=== PATIENT | female | born 1970 | race Caucasian/White ===

== ENCOUNTER 2018-04-11 22:54 | Emergency (ER) | payer BC ==
[~2018-04-11] VITALS: Ht 157.5 cm; Wt 49.9 kg
--- NOTE | 2018-04-11 23:10 | NUR ---
SEEN AND EXAMINED BY DANIELA
--- NOTE | 2018-04-11 23:14 | NUR ---
patient came walking ,aaox4/maex4,verbalized pain to her right side back area of the head.she said it happened about 45 minutes ago,she fell while getting oob hitting her head to the corner fo the bed.no respiratory distess noted .pain level 10/10.
[2018-04-11] MEDS ORDERED: TDAP DIPH,PERTUSS,TET VAC/PF 0.5 ML DISP.SYRIN IM ONE (23:45)
[2018-04-12] MEDS ORDERED: TDAP DIPH,PERTUSS,TET VAC/PF 0.5 ML DISP.SYRIN IM ONE (00:40)
--- NOTE | 2018-04-12 00:43 | NUR ---
patient went for CT via stretcher .
[2018-04-12] MEDS ORDERED: LIDOCAINE 1%-EPI 1:100,000 20 ML VIAL TP ONE (01:15)
[2018-04-12] MEDS ORDERED: HYDROCODONE/APAP 5-325MG TABLET PO ONE (01:15)
[2018-04-12] MEDS ORDERED: ONDANSETRON ODT 4 MG TAB.RAPDIS SL ONE (01:15)
[2018-04-12] MEDS ORDERED: HYDROCODONE/APAP 5-325MG TABLET ONE (01:29)
[2018-04-12] MEDS ORDERED: ONDANSETRON ODT 4 MG TAB.RAPDIS ONE (01:29)
--- NOTE | 2018-04-12 01:30 | NUR ---
dr:NABIL at bedside assisted , cleanse the wound sutured and maria antonia applied ,applied triple antibiotic ointment .
[2018-04-12] MEDS ORDERED: NEOMY/BACITRA/POLYMYXIN B OINT UD PACKET TP ONE (01:39)
[2018-04-12] MEDS ORDERED: IBUPROFEN 400 MG TABLET PO ONE (01:45)
[2018-04-12] MEDS ORDERED: IBUPROFEN 400 MG TABLET ONE (01:49)
--- NOTE | 2018-04-12 02:03 | NUR ---
Patient discharged to home in stable conditon. Written and verbal after care instructions given. Patient verbalizes understanding of instructions.pateint went home with and daughter ,all belongings went with patient .
[2018-04-12 02:05] VITALS: BP 107/72
--- NOTE | 2018-04-12 02:07 | NUR ---
patient went home with and daughter ambulating -out of the door .
[2018-04-14] MEDS ORDERED: NEOMY/BACITRA/POLYMYXIN B OINT UD PACKET TP ONE (08:38)
== END 2018-04-12 02:07 | disposition home or self-care (01) ==
LOC: ER 22:55
DX: S01.01XA Laceration without foreign body of scalp, initial encounter (principal); Z88.5 Allergy status to narcotic agent; W06.XXXA Fall from bed, initial encounter; Y93.89 Activity, other specified; Y92.89 Other specified places as the place of occurrence of the external cause; Y99.8 Other external cause status
CPT/HCPCS: 12002; 70450; 90471; 90715; 99284; J3490; A4217; A4663; Q0162

== ENCOUNTER 2018-04-14 08:19 | Emergency (ER) | payer BC ==
[~2018-04-14] VITALS: Ht 157.5 cm; Wt 49.9 kg
[2018-04-14] MEDS ORDERED: NEOMY/BACITRA/POLYMYXIN B OINT UD PACKET TP ONE (08:45)
[2018-04-14 08:52] VITALS: BP 101/57
--- NOTE | 2018-04-14 09:00 | NUR ---
Patient discharged to home in stable conditon. Written and verbal after care instructions given. Patient verbalizes understanding of instructions.
== END 2018-04-14 09:00 | disposition home or self-care (01) ==
LOC: ER 08:19
DX: S01.01XD Laceration without foreign body of scalp, subsequent encounter (principal); Z88.5 Allergy status to narcotic agent; W01.198D Fall on same level from slipping, tripping and stumbling with subsequent striking against other object, subsequent encounter
CPT/HCPCS: A4663